=== PATIENT | female | born 1955 | race Caucasian/White ===

== ENCOUNTER 2017-11-13 11:10 | Emergency (ER) | payer OTHER ==
[~2017-11-13] VITALS: Ht 167.6 cm; Wt 68.0 kg
--- NOTE | 2017-11-13 11:48 | NUR ---
PT REC'D TO ER VIA EMS C/O PAIN ETOH AWAITING EVALUATION BY ER PROVIDER.
--- NOTE | 2017-11-13 12:11 | NUR ---
PT SLEEPING RESP EVEN UNLABORED
[2017-11-13] MEDS ORDERED: LORAZEPAM INJ 2 MG/ML VIAL IV STA (12:20)
[2017-11-13] MEDS ORDERED: IV NS 0.9% 1,000 ML BAG IV ONE (12:30)
--- NOTE | 2017-11-13 12:35 | NUR ---
PT CRYING WANTS TO KILL HERSELF CAUSE SHE IS HOMELESS AND HUNGRY IV STARTED 18G RT [facility] LABS DRAWN SENT TO LAB
[2017-11-13 12:36] LABS: BASOPHILS # (AUTO) 0.1 /CMM (0.0-0.2); BASOPHILS % (AUTO) 0.8 % (0.0-2.0); EOSINOPHILS % (AUTO) 0.6 % (0.0-6.0); HEMATOCRIT 43 % (33-45); HEMOGLOBIN 14.2 g/dL (11.5-14.8); LYMPHOCYTES # (AUTO) 1.6 /CMM (0.8-4.8); LYMPHOCYTES % (AUTO) 20.9 % (20.0-44.0); MEAN CORPUSCULAR HEMOGLOBIN 32 PG (26.0-33.0); MEAN CORPUSCULAR HGB CONC 33 g/dl (31.0-36.0); MEAN CORPUSCULAR VOLUME 95 fL (82-100); MONOCYTES # (AUTO) 0.6 /CMM (0.1-1.30); MONOCYTES % (AUTO) 8.4 % (2.0-12.0); NEUTROPHILS # (AUTO) 5.4 /CMM (1.8-8.9); NEUTROPHILS % (AUTO) 69.3 % (43.0-81.0); PLATELET COUNT (AUTO) 171 /CMM (150-450); RDW COEFFICIENT OF VARIATION 14.2 (11.5-15.0); RED BLOOD CELL COUNT(AUTO) 4.47 MIL/uL (4.0-5.2); WHITE BLOOD COUNT (AUTO) 7.7 K/uL (4.3-11.0)
[2017-11-13] MEDS ORDERED: LORAZEPAM INJ 2 MG/ML VIAL ONE (12:39)
[2017-11-13 12:46] LABS: CALCIUM, SERUM 8.1 mg/dL (8.5-10.1); CREATININE 0.8 mg/dL (0.6-1.3); POTASSIUM 4.2 mmol/L (3.5-5.1)
--- NOTE | 2017-11-13 12:51 | NUR ---
PT GIVEN IV BOLUS AND ATIVAN PER MD ORDER
[2017-11-13 12:52] LABS: ALBUMIN 3.4 g/dL (3.4-5.0); BILIRUBIN,DIRECT 0.3 mg/dL (0.0-0.2); BILIRUBIN,TOTAL 0.8 mg/dL (0.2-1.0); SALICYLATE 0.9 mg/dL (2.8-20.0); TOTAL PROTEIN, SERUM 7.3 g/dL (6.4-8.2)
[2017-11-13] MEDS ORDERED: ONDANSETRON HCL/PF 4 MG/2 ML VIAL ONE (12:58)
[2017-11-13] MEDS ORDERED: ONDANSETRON 4 MG TAB.RAPDIS PO ONE (13:00)
--- NOTE | 2017-11-13 13:00 | NUR ---
C/O NAUSEA ZOFRAN GIVEN IVP
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
--- NOTE | 2017-11-13 14:20 | NUR ---
CALLED TIMOTHY MARTINEZ, SAID SHE WOULD BE HERE WITHIN THE HOUR.
[2017-11-13 14:25] LABS: APPEARANCE,URINE Clear (CLEAR); BILIRUBIN,URINE Negative (NEGATIVE); BLOOD, URINE Negative Ery/uL (NEGATIVE); COLOR,URINE Yellow (YELLOW); KETONES,URINE Negative (NEGATIVE); LEUKOCYTE ESTERASE ,URINE Trace (NEGATIVE); NITRITE, URINE Negative (NEGATIVE); PROTEIN,URINE Negative (NEGATIVE); UGLUCOSE Negative (NEGATIVE)
--- NOTE | 2017-11-13 14:37 | NUR ---
PT ATE LUNCH FELL BACK TO SLEEP
[2017-11-13 14:47] LABS: BACTERIA,URINE Few /HPF (None Seen); RBC,URINE 0-2 /HPF (0-2); SQUAMOUS EPITHELIAL CELL,UR Few /HPF (None Seen); WBC,URINE 0-2 /HPF (0-3)
--- NOTE | 2017-11-13 15:48 | NUR ---
JUAN SAW THE PT ETOH STILL TOO HIGH WANTS TO HOLD THERE ARE NO BEDS AVAIL AT THIS [facility] .
--- NOTE | 2017-11-13 16:37 | NUR ---
REPEAT ETOH ORDERED
--- NOTE | 2017-11-13 18:18 | NUR ---
PINKY TALKING TO PT .
--- NOTE | 2017-11-13 21:55 | NUR ---
Report given to Shashi CLAY for continuation of care.
--- NOTE | 2017-11-13 23:48 | NUR ---
IV removed. Catheter intact and site benign. Pressure and 4x4 applied to site. No bleeding noted. Patient discharged to home in stable condition. Written and verbal after care instructions given. Patient verbalizes understanding of instruction. ambulatory with a steady gait. pt with all personal belongings. pt vss. [facility].
[2017-11-14] MEDS ORDERED: ONDANSETRON 4 MG TAB.RAPDIS ONE (00:01)
--- NOTE | 2017-11-14 00:06 | NUR ---
PT C/O FEELING NAUSEOUS AT THIS TIME. VERBAL ORDERS PER DR. HINTON TO GIVE SL ZOFRAN 4 MG. PT TRANSFERRED VIA GURNEY TO [facility].
[2017-11-14 00:28] VITALS: BP 168/98
[2017-11-14] MEDS ORDERED: ONDANSETRON 4 MG TAB.RAPDIS SL ONE (00:30)
== END 2017-11-14 00:28 | disposition home or self-care (01) ==
LOC: ER 11:12
DX: R45.851 Suicidal ideations (principal); Z59.0 Homelessness
CPT/HCPCS: 36415; 80048-TC; 80076-TC; 80305; 81000-TC; 85025-TC; A4606; G0480; J2060; J2405; J7030; Q0162; Z7610